=== PATIENT | female | born 1985 | race Asian ===

== ENCOUNTER 2020-06-26 14:19 | Emergency (ER) | payer OTHER ==
[~2020-06-26] VITALS: Ht 160 cm; Wt 78.9 kg
[2020-06-26 14:35] VITALS: BP 147/88; Ht 160 cm; Wt 78.9 kg
== END 2020-06-26 15:06 | disposition home or self-care (01) ==
LOC: ED 14:19
DX: M25.562 Pain in left knee (principal); M54.9 Dorsalgia, unspecified; V43.62XA Car passenger injured in collision with other type car in traffic accident, initial encounter; Y93.89 Activity, other specified; Y92.488 Other paved roadways as the place of occurrence of the external cause; Y99.8 Other external cause status